=== PATIENT | female | born 1970 | race Two or more races ===

== ENCOUNTER 2016-07-25 17:38 | Emergency (ER) | payer MEDICAID ==
--- NOTE | 2016-07-25 17:57 | ED Physician Chart ---
Chief Complaint/HPI - Patient Information Date Seen:: 07/25/16 Time Seen:: 17:39 Chief Complaint:: shoulder pain History of Present Illness:: 45-year-old female, otherwise healthy, complains of acute, now improved, severe , 9 out of 10, radiating down the arm, left shoulder pressure-like pain that started yesterday. Had some associated anxiety. Pain is now relieved. Alleviated over time. Historian:: Patient Review:: Nurse's Note Reviewed Review of Systems - Review of Systems Other: Complete system review otherwise unremarkable except as noted in HPI. Past Medical History - Past Medical History Past Medical History: No significant medical hx Family History: None Social History: Non Smoker, Alcohol (rarely uses alcohol), No Drug Use, Employed Surgical History: None Psychiatricy History: None Medication: None Family Medical History - Family Member Mother History Unknown: Yes Ethnicity: Physical Exam - Physical Examination Other:: INITIAL VITAL SIGNS: Reviewed by me GENERAL: Alert and interactive. No acute distress HEAD: Head is normocephalic and atraumatic EYES: EOMI. . No scleral icterus. No conjunctival injection ENT: Moist mucous membranes. NECK: Supple. No masses. Full range of motion RESPIRATORY: No tachypnea. Clear breath sounds bilaterally. No wheezing, rales, or rhonchi CV: Regular rate and rhythm. No murmurs, rubs, or gallops ABDOMEN: Soft, non-distended, non-tender. No guarding. No rebound. No masses. EXTREMITIES: No deformity. No cyanosis. No edema. SKIN: Warm and dry. No obvious rashes. NEUROLOGIC: Alert and oriented. Face is symmetric. Speech is normal. Moves all extremities equally. Motor and sensory distally intact. Labs/Radiology/EKG Results - Radiology Results Comments:: X-ray left shoulder 3 views was interpreted independently and contemporaneously by Ashley Cabrera MD: No acute fractures No acute dislocations No soft tissue foreign bodies Overall impression: Normal X-ray - EKG Interpretations Comments:: 12-lead EKG Interpretation by Ashley Cabrera MD: Normal Sinus Rhythm with ventricular rate of 85 beats per minute Normal axis Normal intervals No acute ST or T wave changes. No obvious STEMI ED Septic Shock - . Is Septic Shock (SBP<90, OR Lactate>4 mmol\L) present?: No Reassessment (Disposition) - Reassessment Reassessment:: The patient's blood pressure was elevated (>120/80) but appears stable without evidence of hypertensive emergency or urgency. The patient was counseled about the risks hypertension urged to pursue outpatient monitoring and therapy within a week with her primary care physician. Labs and imaging essentially unremarkable. Patient describes that she's had a lot of anxiety. The most likely symptoms driving from anxiety. Gave Ortiz and Bandar here in the ER. She will follow-up with PCP 1-2 days. Gave return to ER precautions. Patient understands and agrees the plan. Reassessment Condition:: Improved - Diagnosis Diagnosis:: Anxiety Medical screening exam Elevated blood pressure without the diagnosis of hypertension - Aftercare/Follow up Instructions Aftercare/Follow-Up Instructions:: Counseled pt regarding lab results/diagnosis & need follow up, Refer to Discharge Instructions - Patient Disposition Discharge/Transfer:: Home Time:: 18:22 Condition at Disposition:: Improved ED Discharge Plan - Patient Disposition Admit/Discharge/Transfer: PT DISCHARGED HOME Condition at Disposition: Improved Instructions: Anxiety and Panic Attacks, [id number] Additional Instructions: Follow-up with your primary care physician in 1 to 2 days. Accepting Physician: , Primary [Other]
[2016-07-25 18:21] LABS: % BASOPHILS 0.4 % (0.0-2.0); % EOSINOPHILS 1.7 % (0.0-5.0); % LYMPHOCYTES 32.4 % (20.0-50.0); % MONOCYTES 6.3 % (2.0-10.0); % NEUTROPHILS 59.2 % (40.0-80.0); HEMATOCRIT 37.4 % (35.0-45.0); HEMOGLOBIN 12.7 gm/dL (11.7-15.5); MEAN CELL VOLUME 84.3 fl (81-100); MEAN CORPUSCULAR HEMOGLOBIN 28.7 pg (27.0-31.0); MEAN CORPUSCULAR HGB CONC 34.1 pg (28.0-36.0); MEAN PLATELET VOLUME 8.5 fl; NEUTROPHILE ABSOLUTE 4.8 Th/cmm (1.8-8.0); PLATELET COUNT 306 Th/cmm (150-400); RED BLOOD COUNT 4.43 Mil/cmm (3.80-5.10); RED CELL DISTRIBUTION WIDTH 15.3 % (11.5-20.0)
[2016-07-25 18:35] LABS: INR 0.92 (0.5-1.4); PROTHROMBIN TIME (TEST) 9.6 SECONDS (9.5-11.5)
[2016-07-25 18:37] LABS: ALB/GLOB RATIO 1.5 (1.0-1.8); ALKALINE PHOSPHATASE 66 U/L (34-104); ANION GAP 9.4 (7.0-16.0); BILIRUBIN,TOTAL 0.2 mg/dL (0.3-1.0); BUN - UREA NITROGEN 14 mg/dL (7-25); CALCIUM SERUM 9.6 mg/dL (8.6-10.3); CARBON DIOXIDE 25.2 mEq/L (21.0-31.0); CHLORIDE 104 mEq/L (98-107); CREATININE - SERUM 0.7 mg/dL (0.6-1.2); GLUCOSE 95 mg/dL (70-105); POTASSIUM SERUM 3.6 mEq/L (3.5-5.1); SGOT 19 U/L (13-39); SGPT/ALT 19 U/L (7-52); SODIUM SERUM 135 mEq/L (136-145)
[2016-07-25 18:42] LABS: URINE BILIRUBIN NEGATIVE (NEGATIVE); URINE BLOOD TRACE (NEGATIVE); URINE COLOR YELLOW; URINE GLUCOSE (UA) NEGATIVE (NEGATIVE); URINE KETONE NEGATIVE (NEGATIVE); URINE PH 7.5; URINE PROTEIN NEGATIVE (NEGATIVE); URINE UROBILINOGEN 0.2 E.U./dL (0.2 - 1.0)
[2016-07-25 18:43] LABS: URINE AMORPHOUS SEDIMENT FEW URATES (NONE SEEN); URINE BACTERIA FEW /hpf (NONE SEEN); URINE EPITHELIAL CELLS FEW /lpf (FEW); URINE RBC 0-2 /hpf (0-5)
--- NOTE | 2016-07-26 15:13 | Diagnostic Imaging Report ---
Left shoulder (3 views) HISTORY: Pain No acute bony abnormalities. No fractures. No dislocation. Joint spaces appear normal. IMPRESSION: No acute abnormalities
== END 2016-07-25 18:55 | disposition home or self-care (01) ==
LOC: ER 17:38
DX: F41.9 Anxiety disorder, unspecified (principal); R03.0 Elevated blood-pressure reading, without diagnosis of hypertension
CPT/HCPCS: 99285; 93005; 73030; 84484; 36415; 85025; 85610; 85730; 81001; 82550; 81025; 80053; Q0162